=== PATIENT | female | born 1980 | race Caucasian/White ===

== ENCOUNTER 2025-02-17 23:05 | Emergency (ER) | payer MEDICAID ==
[~2025-02-17] VITALS: Ht 154.9 cm; Wt 63.0 kg
[2025-02-17 23:17] VITALS: TEMP 36.9; O2SAT 100
[2025-02-18 00:06] VITALS: BP 133/70; PULSE 69; RESP 17; O2SAT 100
== END 2025-02-18 00:07 | disposition home or self-care (01) ==
LOC: ER 23:42
DX: T17.228A Food in pharynx causing other injury, initial encounter (principal); Z90.49 Acquired absence of other specified parts of digestive tract; W44.9XXA Unspecified foreign body entering into or through a natural orifice, initial encounter; Y93.89 Activity, other specified; Y92.89 Other specified places as the place of occurrence of the external cause; Y99.8 Other external cause status
CPT/HCPCS: 42809; 99284